=== PATIENT | female | born 1965 | race Caucasian/White ===

== ENCOUNTER 2018-04-28 08:06 | Emergency (ER) | payer OTHER ==
[2018-04-28 08:15] VITALS: RESP 18; TEMP 98.1
[2018-04-28] MEDS ORDERED: Oxycodone/Acetaminophen 5/325 mg Tab PO STA (09:16)
[2018-04-28] MEDS ORDERED: Tdap Vaccine 0.5 ml Vial (10-64 yrs) IM ONE ×2 (09:18→09:37)
[2018-04-28] MEDS ORDERED: Oxycodone/Acetaminophen 5/325 mg Tab ONE (09:36)
[2018-04-28 09:49] VITALS: O2SAT 99
--- NOTE | 2018-04-28 10:20 | ED PDOC ---
HPI: Trauma/Fall - HPI Time Seen by Provider: 04/28/18 09:03 Chief Complaint (Nursing): Abnormal Skin Integrity Chief Complaint (Provider): Head Laceration History Per: Patient History/Exam Limitations: no limitations Onset/Duration Of Symptoms: Mins Injury Occurred (Timing): Just Before Arrival Associated Symptoms: denies: LOC Additional Complaint(s): 53 y/o female with a PMHx of hypothyroidism and HTN presents to the ED for evaluation of a laceration to the forehead. Patient states she was running to catch the bus when she tripped and fell, hitting her head against the side walk. Patient reports she landed on her knee and caught herself with her hand. Patient states she has minimal pain to the hands and bilateral knees. 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 Patient denies loss of consciousness, vomiting, dizziness, numbness, tingling, loss of strength and incontinence. Patient accompanied by uncle and states she was able to get up and ambulate to the ED. Patient denies any other injury. PMD: Refugio Crump Patient is unsure of her last tetanus vaccination. Past Medical History Reviewed: Historical Data, Nursing Documentation, Vital Signs Vital Signs: Last Vital Signs Temp 98.1 F 04/28/18 08:14 Pulse 68 04/28/18 09:46 Resp 18 04/28/18 09:46 BP 132/79 04/28/18 09:46 Pulse Ox 99 04/28/18 09:46 - Medical History PMH: HTN, Hypothyroidism - Surgical History Surgical History: No Surg Hx - Family History Family History: States: Unknown Family Hx - Immunization History Hx Tetanus Toxoid Vaccination: No - Allergies Allergies/Adverse Reactions: Allergies Allergy/AdvReac Type Severity Reaction Status Date / Time No Known Allergies Allergy Verified 04/28/18 08:40 Review of Systems ROS Statement: Except As Marked, All Systems Reviewed And Found Negative Gastrointestinal: Negative for: Vomiting Musculoskeletal: Positive for: Hand Pain, Leg Pain (Knee pain), Other (Laceration to the Forehead) Neurological: Negative for: Dizziness, Other (loss of consciousness) Physical Exam - Reviewed Nursing Documentation Reviewed: Yes Vital Signs Reviewed: Yes - Physical Exam Appears: Positive for: No Acute Distress Head Exam: Negative for: NORMAL INSPECTION (1.5 inch laceration over the left eyebrow with visible muscle. No visible bone or calvarium. Loss of sensation to the superficial forehead. ) Skin: Positive for: Normal Color, Warm, Dry Eye Exam: Positive for: Normal appearance, EOMI, PERRL ENT: Positive for: Normal ENT Inspection, Other (No movement of teeth. Laceration to inner left upper lip (not through outer lip) without bleeding.) Neck: Positive for: Normal, Painless ROM Cardiovascular/Chest: Positive for: Regular Rate, Rhythm. Negative for: Murmur Respiratory: Positive for: Normal Breath Sounds. Negative for: Respiratory Distress Gastrointestinal/Abdominal: Positive for: Normal Exam, Soft. Negative for: Tenderness Back: Positive for: Normal Inspection. Negative for: L CVA Tenderness, R CVA Tenderness, Vertebral Tenderness, Other (tenderness to the spine) Extremity: Positive for: Normal ROM. Negative for: Tenderness, Deformity, Other (Abrasion ) Neurologic/Psych: Positive for: Alert, senior producer II-XII (intact), Oriented. Negative for: Motor/Sensory Deficits - ECG O2 Sat by Pulse Oximetry: 99 (RA) Pulse Ox Interpretation: Normal Medical Decision Making Medical Decision Making: Time: 917 A/P: Plan: -- Tetanus vaccination given -- Perocet for pain. -- Attempt to contact beth Hidalgo. -- Discussed with patient closure with plastics will depend on availability. -- Will reassess patient -- Eventual closure at this point. -- Adacel (10-64 yrs) -- Percocet 5/325 mg PO Time: 7 -- Patient seen and evaluated by beth Hidalgo with stitches placed to the forehead and lip. Patient given note for work. Return parameters discussed with patient. Scribe Attestation: Documented by Destiny Goode acting as a scribe for Nicole Langston MD. Provider Scribe Attestation: All medical record entries made by the Scribe were at my direction and personally dictated by me. I have reviewed the chart and agree that the record accurately reflects my personal performance of the history, physical exam, medical decision making, and the department course for this patient. I have also personally directed, reviewed, and agree with the discharge instructions and disposition. Disposition - Clinical Impression Clinical Impression: Laceration - Patient ED Disposition Is Patient to be Admitted: No Counseled Patient/Family Regarding: Studies Performed, Diagnosis, Need For Followup - Disposition Disposition: Routine/Home Disposition Time: 11:37 Condition: IMPROVED Additional Instructions: Keep stitches clean and dry. Follow up in Dr. Tse's office as he explained on Monday. Return to the emergency department if you develop swelling, pus, bleeding or other new problems. Follow up with dentist in one week. Take Tylenol or Motrin for pain. Forms: [employer] (French), [facility] ED School/Work Excuse Print Language: COLOMBIAN
[2018-04-28] MEDS ORDERED: Povidone Iodine Topical 10% Sol TOP STA ×2 (10:52→11:06)
[2018-04-28] MEDS ORDERED: Lidocaine 2% w Epi 1:100,000 Inj IJ STA (10:53)
[2018-04-28] MEDS ORDERED: Lidocaine 2% MPF (5 ml) Inj ONE (10:58)
[2018-04-28] MEDS ORDERED: LIDOCAINE 2% 10ML 20 MG/ML VIAL IJ STA (11:03)
[2018-04-28 12:38] VITALS: BP 140/73; PULSE 70
--- NOTE | 2018-05-01 23:32 | CON ---
DATE: 04/28/2018 HISTORY OF PRESENT ILLNESS: This is a 53-year-old healthy woman who tripped and fell and she sustained two discrete lacerations to her face that were complex. The ER staff was consulted for this complex wound. There was a 3 cm left internal forehead laceration, irregular skin edges that went through the muscle. The patient also complained of paresthesias in the area of the supraorbital nerve and the patient also had a separate 1.5 cm left multi-lip laceration on the medial side involving the underlying muscle. On physical exam, findings were left ____ 3 cm laceration with irregular skin edges. She had feeling to the superior forehead, but kamla-incisional paresthesias, supratrophy and nerve distribution appeared to be intact. Fascial nerve frontal branch appeared to be intact. . Extraocular movement exam is normal. There is no double vision. No signs of any fracture and nose is nontender. Her vision is double. On the left hand side, there was a 1.5 cm laceration across the orbicularis diana muscle. I explained to the patient there was scarring and my job as a plastic surgeon was to minimize it. I also told her I would look and explore the wound for the nerve and if the nerve needed to be fixed. Otherwise, she will have permanent paresthesias, but these paresthesias seem to be related at this time, blunt trauma that she sustained. She understood this and wished to proceed. Cristofer Tse MD
--- NOTE | 2018-05-01 23:51 | OP ---
PROCEDURE DATE: 04/28/2018 PREOPERATIVE DIAGNOSES: 1. A 3 cm left forehead laceration. 2. Possible left supraorbital nerve laceration. 3. A 1.5 cm left upper lip laceration. POSTOPERATIVE DIAGNOSES: 1. A 3 cm left forehead laceration. 2. Possible left supraorbital nerve laceration. 3. A 1.5 cm left upper lip laceration. PROCEDURES: 1. Complex repair of 3 cm left forehead laceration. 2. Neurolysis or exploration of cranial nerve, left trigeminal nerve supraorbital branch. 3. Complex repair of 1.5 cm left upper lip laceration. SURGEON: Cristofer Tse MD TYPE OF ANESTHESIA: Regional. 1. Left supraorbital nerve block. 2. Left infraorbital nerve block. INDICATION FOR PROCEDURE: As follows: Please refer to my separately dictated ER consultation for history and physical. DESCRIPTION OF PROCEDURE: As follows: Lidocaine 1% with 1:100,000 epinephrine was used as regional nerve block after allowing sufficient time for the anesthetic to take effect. The wounds were thoroughly irrigated with normal saline. Any retained debris was manually removed. The area was prepped and draped in the usual clean and sterile manner. As part of the operation on the left forehead 3 cm laceration, irregular skin edges were debrided. I explored the wound. I dissected out the supraorbital nerve. It was intact. The orbicularis oculi muscle and mentalis muscle were lacerated. It was carefully repaired with 5-0 Monocryl in interrupted fashion. The subcutaneous tissue and deep dermis with a 3- cm laceration were approximated in an interrupted fashion with 5-0 Monocryl. I then closed the 2 cm epidermis with a running 6-0 chromic suture. After doing this, the wound edges were nicely aligned. The supraorbital nerve appeared to be grossly intact. I explained to the patient there could be a minor epineurial injury or swelling and she may need therapy . I also then addressed the left upper lip. The mucosa and the inside of the left upper lip was debrided. 5-0 Monocryl was used to repair the underlying muscle and submucosa and then a 5-0 fast absorbing running suture was used to close the 1.5 cm left upper inner lip mucosal laceration. After doing this, the wound edges were nicely aligned. The patient tolerated the procedure well and was discharged home from the emergency room in stable condition. Postoperative wound care, limitation of physical activities, the fact that there will be a scar, the prognosis of which is unknown, the possibility of prolonged therapy , need for further operation, repair of the nerve were discussed, and all questions were answered. Cristofer Tse MD
== END 2018-04-28 11:51 | disposition home or self-care (01) ==
LOC: H.ER 08:06
DX: S01.511A Laceration without foreign body of lip, initial encounter (principal); W01.10XA Fall on same level from slipping, tripping and stumbling with subsequent striking against unspecified object, initial encounter; Y93.02 Activity, running; I10 Essential (primary) hypertension; Z23 Encounter for immunization